=== PATIENT | male | born 1990 | race Caucasian/White ===

== ENCOUNTER 2020-07-28 10:55 | Emergency (ER) | payer OTHER ==
[~2020-07-28] VITALS: Ht 180.3 cm; Wt 70.3 kg
[2020-07-28] MEDS ORDERED: CLIN150 PO (11:19)
[2020-07-28] MEDS ORDERED: Ciloxan5 ML LEFTEYE (12:50)
== END 2020-07-28 12:54 | disposition home or self-care (01) ==
LOC: ER 10:55
DX: H11.9 Unspecified disorder of conjunctiva (principal)
CPT/HCPCS: 99283; A9270